=== PATIENT | female | born 1965 | race Caucasian/White ===

== ENCOUNTER → 2018-01-04 | Outpatient (CLI) | payer BC ==
--- NOTE | 2018-01-09 11:14 | MM ---
Reason for exam: screening (asymptomatic). Last mammogram was performed 2 years ago. History: Family history of breast cancer. Physical Findings: A clinical breast exam by your physician is recommended on an annual basis and results should be correlated with mammographic findings. MG 3D Screening Mammo W/Cad Bilateral CC and MLO view(s) were taken. Prior study comparison: January 04, 2016, bilateral MG 3d screening mammo w/cad. May 14, 2006, CAD bilateral diagnostic mammogram. There are two new subcentimeter left breast masses at posterior depth. First upper outer quadrant and the second central inner left breast. There is a new central lower right breast mass. ASSESSMENT: Incomplete: need additional imaging evaluation, BI-RAD 0 RECOMMENDATION: Special view mammogram of both breasts. If lesion persists on supplemental views, image directed ultrasound is recommended. [facility] will attempt to contact patient to return for supplemental views and ultrasound if indicated.
== END | disposition home or self-care (01) ==
LOC: RADMAMWWP 14:31
PROVIDERS: ATTEND Obstetrics & Gynecology
DX: Z12.31 Encounter for screening mammogram for malignant neoplasm of breast (principal)
CPT/HCPCS: 77063; 77067

== ENCOUNTER → 2018-01-17 | Outpatient (CLI) | payer BC ==
--- NOTE | 2018-01-19 09:23 | MM ---
Reason for exam: additional evaluation requested from abnormal screening. Last mammogram was performed less than 1 month ago. History: Patient is postmenopausal. Family history of breast cancer in paternal grandmother. Took hormonal contraceptives for 10 years. Taking estrogen for 11 months. Physical Findings: Nurse did not find any significant physical abnormalities on exam. MG 3D Work Up W/Cad ALIZA Bilateral spot compression CC, spot compression MLO, and LM view(s) were taken. Prior study comparison: January 04, 2018, bilateral MG 3d screening mammo w/cad. January 04, 2016, bilateral MG 3d screening mammo w/cad. There are scattered fibroglandular densities. Finding: There is a 5 mm oval circumscribed lesion in the lower outer posterior right breast. Left persists largest lower portion medial 4-5 mm. These results were verbally communicated with the patient and result sheet given to the patient on 01/17/18. ASSESSMENT: Incomplete: need additional imaging evaluation, BI-RAD 0 RECOMMENDATION: Ultrasound of both breasts.
--- NOTE | 2018-01-19 09:25 | USB ---
Reason for exam: additional evaluation requested from abnormal screening. History: Patient is postmenopausal. Family history of breast cancer in paternal grandmother. Took hormonal contraceptives for 10 years. Taking estrogen for 11 months. US Breast Workup Limited ALIZA Bilateral complete breast ultrasound includes all four quadrants, the retroareolar region and axilla. Finding demonstrates no cystic or solid lesion seen in either breast. ASSESSMENT: Probably benign, BI-RAD 3 RECOMMENDATION: Follow-up diagnostic mammogram of both breasts in 6 months.
== END | disposition home or self-care (01) ==
LOC: RADMAMWWP 08:53
PROVIDERS: ATTEND Obstetrics & Gynecology
DX: R92.8 Other abnormal and inconclusive findings on diagnostic imaging of breast (principal)
CPT/HCPCS: 77062; 77066

== ENCOUNTER 2019-04-06 12:30 | Observation (INO) | payer BC ==
[2019-04-06] MEDS ORDERED: ASPIRIN 81 MG PO STA (13:09)
--- NOTE | 2019-04-06 13:11 | ED ---
Chest Pain HPI - General Chief Complaint: Chest Pain Stated Complaint: chest pain Time Seen by Provider: 04/06/19 12:40 Source: patient Mode of arrival: wheelchair Limitations: no limitations - History of Present Illness Initial Comments: The patient is a 53-year-old female presents emergency Department with reported chest pain. She states the symptoms started 1 hour prior to arrival to the emergency room. States that she was in line at the grocery store when the symptoms began. She describes it as a chest pressure with radiation to her left jaw. Denies associated nausea or vomiting. No shortness of breath. No history of DVT or PE. No ripping or tearing sensation to her back. No hormone use. No history of blood clotting disorders. No headaches or visual changes. Does not take any medications for her symptoms. Presented to the emergency department and the symptoms have resolved. She states she has a large family history of cardiac disease. Her brother at the age of 41 from a heart attack. The patient's last stress test was in 2017. She has a history of hypertension. No history of smoking. Denies hemoptysis, abdominal pain. There are no alleviating, precipitating or modifying factors - Related Data Home Medications Medication Instructions Recorded Confirmed Albuterol Inhaler [Ventolin Hfa 1 - 2 puff INHALATION RT-Q6H PRN 04/06/19 04/06/19 Inhaler] Ibuprofen [Motrin Ib] 400 mg PO Q6H PRN 04/06/19 04/06/19 Montelukast [Singulair] 10 mg PO DAILY 04/06/19 04/06/19 amLODIPine BESYLATE/BENAZEPRIL 1 cap PO DAILY 04/06/19 04/06/19 [Lotrel 5-10 MG] Previous Rx's Medication Instructions Recorded Atorvastatin [Lipitor] 20 mg PO HS #30 tab 04/07/19 Allergies Allergy/AdvReac Type Severity Reaction Status Date / Time Sulfa (Sulfonamide Allergy Unknown Unknown Verified 04/06/19 13:33 Antibiotics) clindamycin Allergy Abdominal Verified 04/06/19 13:33 Pain sulfite Allergy Unknown Verified 04/06/19 13:33 Review of Systems ROS Statement: Those systems with pertinent positive or pertinent negative responses have been documented in the HPI. ROS Other: All systems not noted in ROS Statement are negative. EKG Findings - EKG Comments: EKG Findings:: EKG demonstrates normal sinus rhythm with a ventricular rate of 76. NV interval 162. QRS 74. QTC 427 there are no acute ST segment elevations or depressions concerning for ischemic changes Past Medical History Past Medical History: Asthma, Hypertension Additional Past Medical History / Comment(s): seasonal allergies History of Any Multi-Drug Resistant Organisms: None Reported Past Surgical History: Cholecystectomy, Hysterectomy, Joint Replacement Additional Past Surgical History / Comment(s): sacral - pelvical floor lifted Past Psychological History: No Psychological Hx Reported Smoking Status: Never smoker Past Alcohol Use History: None Reported Past Drug Use History: None Reported General Exam Limitations: no limitations General appearance: alert, in no apparent distress Head exam: Present: atraumatic, normocephalic, normal inspection Eye exam: Present: normal appearance, PERRL, EOMI. Absent: scleral icterus, conjunctival injection, periorbital swelling ENT exam: Present: normal exam, mucous membranes moist Neck exam: Present: normal inspection. Absent: tenderness, meningismus, lymphadenopathy Respiratory exam: Present: normal lung sounds bilaterally. Absent: respiratory distress, wheezes, rales, rhonchi, stridor Cardiovascular Exam: Present: regular rate, normal rhythm, normal heart sounds. Absent: systolic murmur, diastolic murmur, rubs, gallop, clicks GI/Abdominal exam: Present: soft, normal bowel sounds. Absent: distended, tenderness, guarding, rebound, rigid Extremities exam: Present: normal inspection, full ROM, normal capillary refill. Absent: tenderness, pedal edema, joint swelling, calf tenderness Back exam: Present: normal inspection Neurological exam: Present: alert, oriented X3, CN II-XII intact Psychiatric exam: Present: normal affect, normal mood Skin exam: Present: warm, dry, intact, normal color. Absent: rash Course Vital Signs 04/06/19 04/06/19 12:37 13:19 Temperature 97.9 F Pulse Rate 80 Pulse Rate [ 96 Value Stream Coach ] Respiratory 18 Rate Blood Pressure 136/94 O2 Sat by Pulse 95 Oximetry Chest Pain MDM - MDM Upon arrival the patient is placed into room 7. There are some physical exam is performed. A 12-lead EKG is performed and the patient. I did recommend laboratory studies and a chest x-ray. Laboratory studies are unremarkable. First troponin is negative. Chest x-ray demonstrates no acute findings. The patient is pain-free at this time. She was given 4 chewable aspirins. I did recommend admission to the hospital because of her large cardiac history for which the patient did agree. I called and discussed the case with Dr. umaña who accepted admission. The patient was then transported to floor in stable condition Disposition Clinical Impression: Chest pain Disposition: ADMITTED IP TO THIS HOSP Condition: Stable Is patient prescribed a controlled substance at d/c from ED?: No Decision to Admit Reason: Admit from EC Decision Date: 04/06/19 Decision Time: 15:58
[2019-04-06 13:27] LABS: Basophils # (A) 0.1 k/uL (0-0.2); Basophils % (A) 1 %; Eosinophils # (A) 0.2 k/uL (0-0.7); Eosinophils % (A) 3 %; HCT 43.1 % (34.0-46.0); HGB 14.2 gm/dL (11.4-16.0); Lymphocytes # (A) 2.4 k/uL (1.0-4.8); Lymphocytes % (A) 38 %; MCH 29.4 pg (25.0-35.0); MCV 88.9 fL (80.0-100.0); Mean Platelet Volume 5.9; Monocytes # (A) 0.3 k/uL (0-1.0); Monocytes % (A) 4 %; Neutrophils # (A) 3.4 k/uL (1.3-7.7); Neutrophils % (A) 52 %; Platelet Count 367 k/uL (150-450); RBC 4.85 m/uL (3.80-5.40); RDW 12.6 % (11.5-15.5); WBC 6.4 k/uL (3.8-10.6)
[2019-04-06 13:34] LABS: Albumin 4.7 g/dL (3.5-5.0); Calcium 10.4 mg/dL (8.4-10.2); INR 0.9 (<1.2); Magnesium 2.2 mg/dL (1.6-2.3); Partial Thromboplastin Time 24.4 sec (22.0-30.0); Potassium 3.8 mmol/L (3.5-5.1); Prothrombin Time 9.8 sec (9.0-12.0); Total Bilirubin 0.4 mg/dL (0.2-1.3); Total Protein 7.8 g/dL (6.3-8.2)
--- NOTE | 2019-04-06 14:18 | XR ---
EXAMINATION TYPE: XR chest 2V DATE OF EXAM: 04/06/2019 COMPARISON: NONE HISTORY: Chest pain TECHNIQUE: Frontal and lateral views of the chest are obtained. FINDINGS: Heart and mediastinum are normal. Lungs are clear. Diaphragm is normal. Bony thorax appear s intact. There are chest leads. IMPRESSION: Normal chest.
[2019-04-06] MEDS ORDERED: NALOXONE 0.4 MG/ML 1 ML VIAL IV PRN (15:59)
[2019-04-06] MEDS ORDERED: ALBUTEROL NEBULIZED 2.5 MG/3 ML INHALATION SCH (20:00)
[2019-04-06] MEDS ORDERED: ALBUTEROL NEBULIZED 2.5 MG/3 ML INHALATION PRN (20:59)
[2019-04-07 05:30] LABS: Basophils # (A) 0.1 k/uL (0-0.2); Basophils % (A) 1 %; Eosinophils # (A) 0.2 k/uL (0-0.7); Eosinophils % (A) 4 %; HCT 39.5 % (34.0-46.0); HGB 12.9 gm/dL (11.4-16.0); Lymphocytes # (A) 2.1 k/uL (1.0-4.8); Lymphocytes % (A) 36 %; MCH 29.7 pg (25.0-35.0); MCHC 32.7 g/dL (31.0-37.0); MCV 90.7 fL (80.0-100.0); Mean Platelet Volume 5.6; Monocytes # (A) 0.3 k/uL (0-1.0); Monocytes % (A) 5 %; Neutrophils # (A) 2.9 k/uL (1.3-7.7); Neutrophils % (A) 51 %; Platelet Count 347 k/uL (150-450); RBC 4.36 m/uL (3.80-5.40); RDW 12.8 % (11.5-15.5); WBC 5.7 k/uL (3.8-10.6)
[2019-04-07 05:42] LABS: Calcium 9.7 mg/dL (8.4-10.2)
[2019-04-07 07:59] VITALS: PULSE 90; TEMP 98.2
--- NOTE | 2019-04-07 08:49 | CONS ---
CONSULTATION Meg Suarez is a 53-year-old lady with a very strong family history of premature coronary disease with her father having had a bypass surgery in the 40s and her brother having with an acute VA. This lady also has hypertension and bronchial asthma. She sees Dr. Smith in the outpatient setting. Her primary care physician is Dr. Vanessa. She came in because she had midsternal discomfort that lasted according to her about 15-20 minutes. Pain came on at rest and seemed to persist for a few minutes and then it was resolved. She has no chest pain at this time. The quality of the pain seems very atypical and EKG, two sets are unremarkable, troponins are unremarkable. Apparently, she was in the grocery store when she had some chest pressure. There was some radiation to the left jaw, occurred at rest. There was no nausea, vomiting, or diaphoresis. She came into the emergency room and by the time her symptoms resolved and never recurred. Her last stress test apparently was a few years ago. She does not recall exactly when. She has no symptoms of chest pain, shortness of breath or palpitation at the time of my evaluation. PAST MEDICAL HISTORY: 1. Bronchial asthma. 2. Hypertension. 3. No evidence of any prior myocardial infarction or CVA or diabetes. She is status post hysterectomy, cholecystectomy, appendectomy and bilateral hip arthroplasty. ALLERGIES: Allergic to SULFA, CLINDAMYCIN. MEDICATIONS: At home include amlodipine, benazepril combination, Lotrel 510 one tablet daily, ibuprofen and also inhalers. She also takes Singulair 10 mg daily. PHYSICAL EXAMINATION: Blood pressure is 130/80, pulse rate 78 per minute, regular. HEENT: Unremarkable. Fundus was not examined by me. Neck is supple. No JVD. I do not hear a carotid bruit. There is no thyromegaly. Heart exam reveals S1, S2 heard normally without a rub, murmur or gallop. Lungs are clear. Abdomen is soft, nontender. Lower extremities reveal normal pulses. No edema. Central nervous system is normal. EKG revealed sinus mechanism, no acute changes. IMPRESSION: 1. Chest pain syndrome, seems atypical. 2. Hypertension. 3. Hyperlipidemia with LDL of 125. 4. Family history of premature coronary artery disease. RECOMMENDATION: I am recommending that we add a very small dose of beta alex, perform an echocardiogram, a stress echo and if these are normal she can be discharged. I will initiate her on Lipitor 20 mg daily, given her risk factors of hypertension, family history and elevated LDL cholesterol. I discussed my thoughts in detail with the patient. Thank you very much for the consult. TODD / WIL: [id number] /
[2019-04-07] MEDS ORDERED: LISINOPRIL 10 MG TAB PO SCH (09:00)
[2019-04-07] MEDS ORDERED: MONTELUKAST 10 MG TAB PO SCH (09:00)
[2019-04-07] MEDS ORDERED: METOPROLOL TARTRATE 12.5 MG TAB PO SCH (09:00)
[2019-04-07] MEDS ORDERED: amLODIPine 5 MG TAB PO SCH (09:00)
--- NOTE | 2019-04-07 11:44 | ECHOF ---
Referral Reason:chest pain MEASUREMENTS -------- HEIGHT: 132.1 cm WEIGHT: 74.8 kg BP: IVSd: 1.1 cm (0.6 - 1.1) LVIDd: 4.2 cm (3.9 - 5.3) LVPWd: 1.1 cm (0.6 - 1.1) IVSs: 1.5 cm LVIDs: 3.0 cm LVPWs: 1.4 cm LA Diam: 3.2 cm (2.7 - 3.8) LAESV Index (A-L): 31.28 ml/m Ao Diam: 3.5 cm (2.0 - 3.7) AV Cusp: 1.3 cm (1.5 - 2.6) LA Diam: 3.1 cm (2.7 - 3.8) MV EXCURSION: 18.395 mm (> 18.000) MV EF SLOPE: 95 mm/s (70 - 150) EPSS: 0.5 cm MV E Ganesh: 0.73 m/s MV DecT: 307 ms MV A Ganesh: 0.90 m/s MV E/A Ratio: 0.82 RAP: 5.00 mmHg TAPSE: 21.52 mm FINDINGS -------- Sinus rhythm. This was a technically good study. LV size, wall thickness and systolic function are normal, with an EF greater than 55%. The left yesy tricular size is normal. The diastolic filling pattern is normal for the age of the patient 6.60. The right ventricle is normal in size. The left atrial size is normal. The right atrial size is normal. Interatrial and interventricular septum intact. The aortic valve is trileaflet, and appears structurally normal. No aortic stenosis or regurgitation. Mild mitral regurgitation is present. Mild tricuspid regurgitation present. Right ventricular systolic pressure is normal at < 35 mmHg. There is no evidence of pulmonary hypertension. There is no pulmonic regurgitation present. There is no pericardial effusion. CONCLUSIONS -------- 1. Sinus rhythm. 2. This was a technically good study. 3. LV size, wall thickness and systolic function are normal, with an EF greater than 55%. 4. The left ventricular size is normal. 5. The diastolic filling pattern is normal for the age of the patient 6.60 6. The right ventricle is normal in size. 7. The left atrial size is normal. 8. The right atrial size is normal. 9. Interatrial and interventricular septum intact. 10. The aortic valve is trileaflet, and appears structurally normal. No aortic stenosis or regurgitat ion. 11. Mild mitral regurgitation is present. 12. Mild tricuspid regurgitation present. 13. Right ventricular systolic pressure is normal at < 35 mmHg. 14. There is no evidence of pulmonary hypertension. 15. There is no pulmonic regurgitation present. 16. There is no pericardial effusion. ACID PURIFICATION EQUIPMENT OPERATOR: Nadira Cintron RDCS
[2019-04-07 12:14] VITALS: BP 139/97; RESP 18
--- NOTE | 2019-04-07 17:12 | P.DS ---
Providers Date of admission: 04/06/19 15:59 Attending physician: Adelso Villalobos MD Consults: 04/06/19 16:02 Consult Physician Urgent Consulting Provider: [facility] Consult Reason/Comments: acute chest pain Do you want consulting provider notified?: Yes Primary care physician: Otf Clark [facility] Course: Please refer to my HPI Patient Condition at Discharge: Stable Plan - Discharge Summary Discharge Rx Participant: No New Discharge Prescriptions: New Atorvastatin [Lipitor] 20 mg PO HS #30 tab Continue amLODIPine BESYLATE/BENAZEPRIL [Lotrel 5-10 MG] 1 cap PO DAILY Montelukast [Singulair] 10 mg PO DAILY Albuterol Inhaler [Ventolin Hfa Inhaler] 1 - 2 puff INHALATION RT-Q6H PRN PRN Reason: Shortness Of Breath Ibuprofen [Motrin Ib] 400 mg PO Q6H PRN PRN Reason: Pain Discharge Medication List Albuterol Inhaler [Ventolin Hfa Inhaler] 1 - 2 puff INHALATION RT-Q6H PRN 04/06/19 [History] Ibuprofen [Motrin Ib] 400 mg PO Q6H PRN 04/06/19 [History] Montelukast [Singulair] 10 mg PO DAILY 04/06/19 [History] amLODIPine BESYLATE/BENAZEPRIL [Lotrel 5-10 MG] 1 cap PO DAILY 04/06/19 [History] Atorvastatin [Lipitor] 20 mg PO HS #30 tab 04/07/19 [Rx] Follow up Appointment(s)/Referral(s): Torrey Murphy MD [STAFF PHYSICIAN] - 1 Week Eduardo Vanessa MD [Primary Care Provider] - 3 Days Patient Instructions/Handouts: Chest Pain (DC) Discharge Disposition: HOME SELF-CARE
--- NOTE | 2019-04-07 17:12 | P.HPIM ---
History of Present Illness Patient Came in with complains of [id number] chest pain in the retrosternal area pressure-like sensation denied any associated with nausea lightheadedness shortness of breath etc. some radiation to the left chest. Patient does have significant family history with her brother dying of heart attack at age 41 and multiple other family members 7 coronary artery disease. Her chest pain completely resolved at that time at this time patient chest pain is nonpleuritic not associated with food no diaphoresis. Denied any cough chest x-ray did not show pneumonia Review of Systems REVIEW OF SYSTEMS: CONSTITUTIONAL: No fever, no malaise, no fatigue. HEENT: No recent visual problems or hearing problems. Denied any sore throat. CARDIOVASCULAR: No orthopnea, PND, no palpitations, no syncope. PULMONARY: No shortness of breath, no cough, no hemoptysis. GASTROINTESTINAL: No diarrhea, no nausea, no vomiting, no abdominal pain. NEUROLOGICAL: No headaches, no weakness, no numbness. HEMATOLOGICAL: Denies any bleeding or petechiae. GENITOURINARY: Denies any burning micturition, frequency, or urgency. MUSCULOSKELETAL/RHEUMATOLOGICAL: Denies any joint pain, swelling, or any muscle pain. ENDOCRINE: Denies any polyuria or polydipsia. The rest of the 14-point review of systems is negative. Past Medical History Past Medical History: Asthma, Hypertension Additional Past Medical History / Comment(s): seasonal allergies History of Any Multi-Drug Resistant Organisms: None Reported Past Surgical History: Cholecystectomy, Hysterectomy, Joint Replacement Additional Past Surgical History / Comment(s): sacral - pelvical floor lifted Past Psychological History: No Psychological Hx Reported Smoking Status: Never smoker Past Alcohol Use History: None Reported Past Drug Use History: None Reported Medications and Allergies Home Medications Medication Instructions Recorded Confirmed Type Albuterol Inhaler [Ventolin Hfa 1 - 2 puff INHALATION RT-Q6H PRN 04/06/19 04/06/19 History Inhaler] Ibuprofen [Motrin Ib] 400 mg PO Q6H PRN 04/06/19 04/06/19 History Montelukast [Singulair] 10 mg PO DAILY 04/06/19 04/06/19 History amLODIPine BESYLATE/BENAZEPRIL 1 cap PO DAILY 04/06/19 04/06/19 History [Lotrel 5-10 MG] Atorvastatin [Lipitor] 20 mg PO HS #30 tab 04/07/19 Rx Allergies Allergy/AdvReac Type Severity Reaction Status Date / Time Sulfa (Sulfonamide Allergy Unknown Unknown Verified 04/06/19 13:33 Antibiotics) clindamycin Allergy Abdominal Verified 04/06/19 13:33 Pain sulfite Allergy Unknown Verified 04/06/19 13:33 Physical Exam Vitals: Vital Signs Temp Pulse Pulse Resp BP BP Pulse Ox 04/07/19 12:00 98.2 F 90 18 139/97 96 04/07/19 07:30 98.2 F 90 16 151/94 97 04/07/19 04:00 98.3 F 79 18 130/80 97 04/07/19 03:02 18 04/06/19 23:24 98.4 F 98 18 118/72 96 04/06/19 23:12 18 04/06/19 20:00 18 04/06/19 19:11 98.7 F 79 18 130/79 97 04/06/19 17:55 98.3 F 97 16 131/88 96 Intake and Output 04/07/19 04/07/19 04/07/19 06:59 14:59 22:59 Intake Total 240 Balance 240 Intake: Oral 240 Other: Voiding Method Toilet Toilet # Voids 1 Weight 74.843 kg PHYSICAL EXAMINATION: GENERAL: The patient is alert and oriented x3, not in any acute distress. Well developed, well nourished. HEENT: Pupils are round and equally reacting to light. EOMI. No scleral icterus. No conjunctival pallor. Normocephalic, atraumatic. No pharyngeal erythema. No thyromegaly. CARDIOVASCULAR: S1 and S2 present. No murmurs, rubs, or gallops. PULMONARY: Chest is clear to auscultation, no wheezing or crackles. ABDOMEN: Soft, nontender, nondistended, normoactive bowel sounds. No palpable organomegaly. MUSCULOSKELETAL: No joint swelling or deformity. EXTREMITIES: No cyanosis, clubbing, or pedal edema. NEUROLOGICAL: Gross neurological examination did not reveal any focal deficits. SKIN: No rashes. Results CBC & Chem 7: 04/07/19 04:32 04/07/19 04:34 Labs: Abnormal Lab Results - Last 24 Hours (Table) 04/07/19 Range/Units 04:34 BUN 20 H (7-17) mg/dL Cholesterol 200 H (<200) mg/dL LDL Cholesterol, Calc 125 H (0-99) mg/dL Thrombosis Risk Factor Assmnt - Choose All That Apply Any of the Below Risk Factors Present?: Yes Each Factor Represents 1 point: Age 41-60 years Other Risk Factors: No Thrombosis Risk Factor Assessment Total Risk Factor Score: 1 Thrombosis Risk Factor Assessment Level: Low Risk Assessment and Plan Plan: Chest pain: Rule out acute coronary syndromes unstable angina patient has atypical chest pain and underwent stress test which was negative patient is being discharged today although etiology of chest pain is not clear -Hyperlipidemia patient will continued on 20 mg of Lipitor and at [facility] was provided -Hypertension -Asthma without any acute exacerbation
[2019-04-07] MEDS ORDERED: ATORVASTATIN 20 MG TAB PO SCH (21:00)
--- NOTE | 2019-04-08 08:07 | ECHOS ---
STRESS ECHOCARDIOGRAM INDICATIONS: Chest pain BASELINE HEART RATE: 90 BASELINE BLOOD PRESSURE: 122/66 MAXIMUM HEART RATE: 157 MAXIMUM BLOOD PRESSURE: 160/79 85% MPHR: 141 100% MPHR: 166 METS: 9.7 MAXIMUM STAGE REACHED: 3 TOTAL EXERCISE TIME: 8:00 CLINICAL INFORMATION: Baseline EKG revealed normal sinus rhythm without significant ST changes. Patient walked for 8 minutes, achieved a maximal heart rate of 157 beats per minute, developed fatigue and shortness of breath but did not have any angina or arrhythmia. EKG did not reveal any ST-segment changes to indicate ischemia. By EKG criteria this is a negative stress test with fair exercise capacity. Baseline echo images revealed normal wall motion and wall thickening of all segments. At peak exercise, there was good augmentation of left ventricular wall motion and wall thickening of all segments suggesting that there is no evidence of stress-induced ischemia on this study. IMPRESSION: 1. Fair exercise capacity with a negative stress test by EKG criteria. 2. Normal stress echocardiogram. MMODL / IJN: [id number] /
== END 2019-04-07 14:17 | disposition home or self-care (01) ==
LOC: EC 12:30 → 1SOBS 15:59
PROVIDERS: ADMIT Internal Medicine; ATTEND Internal Medicine
DX: R07.89 Other chest pain (principal); I10 Essential (primary) hypertension; E78.5 Hyperlipidemia, unspecified; J45.909 Unspecified asthma, uncomplicated; Z79.899 Other long term (current) drug therapy; Z88.1 Allergy status to other antibiotic agents; Z88.2 Allergy status to sulfonamides; Z90.49 Acquired absence of other specified parts of digestive tract; Z90.710 Acquired absence of both cervix and uterus; Z96.643 Presence of artificial hip joint, bilateral; Z82.49 Family history of ischemic heart disease and other diseases of the circulatory system
CPT/HCPCS: 93005 ×2; 99285; 36415; 93351; 80061; 80053; 80048; 83735; 84484 ×2; 85025 ×2; 85610; 85730; 71046; G0378 ×2; 93306